=== PATIENT | female | born 1970 | race Caucasian/White ===

== ENCOUNTER → 2017-01-08 | Outpatient (CLI) | payer OTHER ==
[~2017-01-08] MED LIST: WELLBUTRIN XL PO
--- NOTE | ~2017-01-08 | EKG ---
PATIENT: LULÚ BALDWIN UNIT #: [id number] Ventricular Rate: 75 BPM Atrial Rate: 75 BPM P-R Interval: 160 ms QRS Duration: 88 ms Q-T Interval: 386 ms QTC Calculation(Bezet): 431 ms P Stanton: 36 degrees Calculated R Stanton: 93 degrees Calculated T Stanton: 30 degrees Diagnosis Line: Normal sinus rhythm Diagnosis Line: Rightward axis Diagnosis Line: Inferior infarct , age undetermined Diagnosis Line: Abnormal ECG Diagnosis Line: No previous ECGs available Diagnosis Line: Confirmed by MARIA ESTHER MARTINEZ MD ([id number]) on 01/08/2017 Diagnosis Line: 11:04:22 PM INTERPRETING MD: JUAN FRANKLIN
[2017-01-08 14:25] LABS: HEMATOCRIT 40.6 % (35.0-45.0); HEMOGLOBIN 13.6 gm/dL (12.0-16.0); MEAN CELL VOLUME 88.7 FL (83-96); MEAN CORPUSCULAR HEMOGLOBIN 29.7 PG (28-34); MEAN CORPUSCULAR HGB CONC 33.5 g/dL (30-36); RED BLOOD COUNT 4.57 X10e (3.90-5.30); RED CELL DISTRIBUTION WIDTH 13.3 % (11.0-15.5)
[2017-01-08 14:26] LABS: MEAN PLATELET VOLUME 8.3 FL (6.5-11.5)
[2017-01-08 14:48] LABS: BUN/CREATININE RATIO 17.5; CALCIUM SERUM 8.9 mg/dL (8.4-10.2); CREATININE SERUM 0.8 mg/dL (0.6-1.4); GLOM FILT RATE Estimated 88.5 mL/min (>60); POTASSIUM 3.8 mmol/L (3.5-5.1)
== END | disposition home or self-care (01) ==
LOC: CLAB 13:55
PROVIDERS: Ophthalmology Retina Specialist
DX: Z01.818 Encounter for other preprocedural examination (principal); H33.20 Serous retinal detachment, unspecified eye; I10 Essential (primary) hypertension
CPT/HCPCS: 36415; 80048; 85027; 93005